=== PATIENT | male | born 1960 | race Caucasian/White ===

== ENCOUNTER 2019-06-04 05:26 | Emergency (ER) | payer MEDICAID ==
[~2019-06-04] VITALS: Ht 172.7 cm; Wt 93.0 kg
--- NOTE | 2019-06-04 05:26 | NUR ---
PT BIB [facility] WITH A C/O LEFT SIDED SQUEEZING CHEST PAIN 11/16. INTERMITTENT X 10 DAYS. PT DENIES FEVER OR FLU LIKE SYMPTOMS. PT IS AA&O X4. PT IS ON THE MONITOR AND CONTINUOUS PULSE OX. PT IS [place] SPEAKING ONLY. PT'S IS AT THE BEDSIDE.
--- NOTE | 2019-06-04 05:26 | NUR ---
PT REC'D 324MG PO ASPIRIN AND 1 SPRAY OF NITRO IN THE FIELD.
[2019-06-04 05:44] LABS: BASOPHILS % (AUTO) 0.6 % (0.0-2.0); EOSINOPHILS % (AUTO) 2.4 % (0.0-6.0); HEMATOCRIT 38 % (39-51); HEMOGLOBIN 12.7 g/dL (13.5-17.5); LYMPHOCYTES # (AUTO) 2.5 /CMM (0.8-4.8); LYMPHOCYTES % (AUTO) 45.6 % (20.0-44.0); MEAN CORPUSCULAR HGB CONC 34 g/dl (31.0-36.0); MEAN CORPUSCULAR VOLUME 87 fL (80-96); MONOCYTES # (AUTO) 0.5 /CMM (0.1-1.30); MONOCYTES % (AUTO) 9.1 % (2.0-12.0); NEUTROPHILS # (AUTO) 2.3 /CMM (1.8-8.9); NEUTROPHILS % (AUTO) 42.3 % (43.0-81.0); PLATELET COUNT (AUTO) 220 /CMM (150-450); RED BLOOD CELL COUNT(AUTO) 4.34 MIL/uL (4.5-6.0); WHITE BLOOD COUNT (AUTO) 5.4 K/uL (4.3-11.0)
--- NOTE | 2019-06-04 05:57 | NUR ---
PT APPEARS TO BE RESTING COMFORTABLY. WILL CONTINUE TO MONITOR THE PT.
--- NOTE | 2019-06-04 06:03 | NUR ---
PT AMBULATED TO THE BATHROOM WITH A STEADY GAIT.
--- NOTE | 2019-06-04 06:06 | NUR ---
CALLED [facility]: CXR READ.
--- NOTE | 2019-06-04 06:07 | NUR ---
URINE SAMPLE OBTAINED AND SENT TO LAB. PT AMBULATED BACK TO ER #4 WITH A STEADY GAIT.
[2019-06-04 06:08] LABS: ALANINE AMINOTRANSFERASE 31 U/L (12-78); ALBUMIN 3.4 g/dL (3.4-5.0); ALKALINE PHOSPHATASE 88 U/L (46-116); ASPARTATE AMINOTRANSFERASE 23 U/L (15-37); B-TYPE NATRIURETIC PEPTIDE 47 PG/ML (0-125); BILIRUBIN,TOTAL 0.2 mg/dL (0.2-1.0); CALCIUM, SERUM 8.7 mg/dL (8.5-10.1); CARBON DIOXIDE 24 mmol/L (21-32); CHLORIDE 101 mmol/L (98-107); CREATININE 1.3 mg/dL (0.6-1.3); POTASSIUM 4.6 mmol/L (3.5-5.1); SODIUM SERUM 136 mmol/L (136-145); TOTAL PROTEIN, SERUM 7.2 g/dL (6.4-8.2); UREA NITROGEN, BLOOD 21 mg/dL (7-18)
[2019-06-04 06:09] LABS: GLUCOSE 383 mg/dL (74-106)
--- NOTE | 2019-06-04 06:10 | NUR ---
DR WEINBERG IS AT THE BEDSIDE SPEAKING TO THE PT.
--- NOTE | 2019-06-04 06:52 | NUR ---
IV removed. Catheter intact and site benign. Pressure and 4x4 applied to site. No bleeding noted. Patient discharged to home in stable condition. Written and verbal after care instructions given. Patient verbalizes understanding of instruction. PT SIGNED THE DISCHARGE ADDITIONAL NOTE FROM DR. WEINBERG STATING HE WAS DECLINING ADMIN TO THE HOSPITAL AND KNOWS THE RISK OF LEAVING. VSS. NAD NOTED. PT'S IS DRIVING PT HOME.
[2019-06-04 07:00] VITALS: BP 158/73
== END 2019-06-04 06:52 | disposition home or self-care (01) ==
LOC: ER 05:26
DX: R07.89 Other chest pain (principal); I10 Essential (primary) hypertension; E11.9 Type 2 diabetes mellitus without complications; Z98.890 Other specified postprocedural states
CPT/HCPCS: 36415; 71045-TC; 80048-TC; 80076-TC; 83880; 84484-TC; 85025-TC